=== PATIENT | female | born 1980 | race Caucasian/White ===

== ENCOUNTER → 2016-09-27 | Outpatient (CLI) | payer MEDICARE, OTHER ==
[~2016-09-27] MED LIST: LEUPROLIDE ACET 11.25MG SYRGKIT IM ONE
[2016-09-27 08:45] VITALS: BP 131/87; PULSE 99; RESP 16; TEMP 97.7
== END | disposition home or self-care (01) ==
LOC: PROCWHC3 08:30
PROVIDERS: ATTEND Internal Medicine Hematology & Oncology
DX: C50.412 Malignant neoplasm of upper-outer quadrant of left female breast (principal)
CPT/HCPCS: 96372; J1950

== ENCOUNTER → 2016-12-26 | Outpatient (CLI) | payer MEDICARE, OTHER ==
[~2016-12-26] MED LIST changes: +LEUPROLIDE ACET 11.25MG SYRGKIT IM NR; -LEUPROLIDE ACET 11.25MG SYRGKIT IM ONE
[2016-12-26 09:17] VITALS: BP 147/84; PULSE 95; RESP 16; TEMP 97.7
== END ==
LOC: PROCWHC3 08:40
PROVIDERS: ATTEND Internal Medicine Hematology & Oncology
DX: Z51.11 Encounter for antineoplastic chemotherapy (principal); C50.412 Malignant neoplasm of upper-outer quadrant of left female breast
CPT/HCPCS: 96402; J1950

== ENCOUNTER → 2017-03-28 | Outpatient (CLI) | payer MEDICARE, OTHER ==
[~2017-03-28] MED LIST changes: -LEUPROLIDE ACET 11.25MG SYRGKIT IM NR; +LEUPROLIDE ACET 11.25MG SYRGKIT IM ONE
[2017-03-28 08:53] VITALS: BP 135/87; PULSE 95; RESP 18; TEMP 97.6
== END | disposition home or self-care (01) ==
LOC: PROCWHC3 08:27
PROVIDERS: ATTEND Internal Medicine Hematology & Oncology
DX: C50.412 Malignant neoplasm of upper-outer quadrant of left female breast (principal)
CPT/HCPCS: 96402; J1950

== ENCOUNTER 2017-05-26 08:43 | Emergency (ER) | payer MEDICARE, OTHER ==
[2017-05-26 08:51] VITALS: BP 133/84; PULSE 104; RESP 18; TEMP 97.2
--- NOTE | 2017-05-26 09:07 | ED ---
General Adult HPI - General Chief complaint: Extremity Problem,Nontraumatic Stated complaint: L leg swelling Time Seen by Provider: 05/26/17 08:52 Source: patient, RN notes reviewed Mode of arrival: ambulatory Limitations: no limitations - History of Present Illness Initial comments: patient is a 37-year-old female who presents emergency room today with chief complaint of redness and some swelling to the left lower ankle. Patient does not that it started a few days ago. Does not that she's had cellulitis in the past and thislook similar. Patient denies any other complaints or symptoms. Patient denies any recent fever, chills, shortness of breath, chest pain, back pain, abdominal pain, nausea or vomiting, numbness or tingling, dysuria or hematuria, constipation or diarrhea, headaches or visual changes, or any other complaints. - Related Data Home Medications Medication Instructions Recorded Confirmed Leuprolide Acetate [Lupron Depot] 3.75 mg IM DIRECTED 04/20/15 03/28/17 carBAMazepine [TEGretol XR] 400 mg PO TID 04/27/15 03/28/17 Calcium Carbonate/Vitamin D3 1 each PO DAILY 03/21/16 03/28/17 [Calcium 600-Vit D3 800 Tab] Multivitamins, Thera [Multivitamin] 1 tab PO DAILY 03/21/16 03/28/17 Previous Rx's Medication Instructions Recorded Cephalexin [Keflex] 500 mg PO Q12HR 10 Days 05/26/17 Sulfamethox-Tmp 800-160Mg [Bactrim 1 tab PO Q12HR #20 tab 05/26/17 DS 800-160 mg] Allergies Allergy/AdvReac Type Severity Reaction Status Date / Time No Known Allergies Allergy Verified 05/26/17 08:51 Review of Systems ROS Statement: Those systems with pertinent positive or pertinent negative responses have been documented in the HPI. ROS Other: All systems not noted in ROS Statement are negative. Past Medical History Past Medical History: Cancer, CVA/TIA, Pneumonia, Seizure Disorder Additional Past Medical History / Comment(s): bilateral mastectomies 11/2014, abdominal wall cellulitis with sepsis-candidiasis beneath breasts, L breast cancer 05/25/14 and underwent several chemo tx with last one being 10/08/14. 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 History of Any Multi-Drug Resistant Organisms: None Reported Past Surgical History: Breast Surgery, Tonsillectomy Additional Past Surgical History / Comment(s): biopsy lt breast positive for CA - Apr 2014. MOther states plan of care is post insertion, chemo, surgery then radiation. Starting once all test results are back. Lt axillary biopsy scheduledfor05/09/14 - bilat mastectomy, last chemo oct 08, 2014 Past Anesthesia/Blood Transfusion Reactions: No Reported Reaction Past Psychological History: No Psychological Hx Reported Smoking Status: Never smoker Past Alcohol Use History: None Reported Past Drug Use History: None Reported - Past Family History Brother(s) Additional Family Medical History / Comment(s): testicular cancer Father Family Medical History: Hypertension mother Additional Family Medical History / Comment(s): melanoma in arm, arthiritis in bilateral knees- has had one knee replacement and needs the other one done. General Exam - General Exam Comments Initial Comments: General: The patient is awake and alert, in no distress, and does not appear acutely ill. Neck: The neck is supple, there is no tenderness or JVD. Cardiovascular: There is a regular rate and rhythm. No murmur, rub or gallop is appreciated. Respiratory: Lungs are clear to auscultation, respirations are non-labored, breath sounds are equal. No wheezes, stridor, rales, or rhonchi. Musculoskeletal:Full range motion. Sensation intact. Pulses equal bilateral 2 + per strength 5/5. Neurological: A&O x 3. CN II-XII intact, There are no obvious motor or sensory deficits. Coordination appears grossly intact. Speech is normal. Skin: area of redness and swelling locally or to the medial aspect of the left upper ankle. Measures approximately 6-7 cm across. No locally firm on palpation no sign of abscess at this time. Finds are consistent with a sialitis. Skin is warm to touch. Psychiatric: Normal mood and affect. Limitations: no limitations Course Vital Signs 05/26/17 08:47 Temperature 97.2 F L Pulse Rate 104 H Respiratory 18 Rate Blood Pressure 133/84 Medical Decision Making - Medical Decision Making Case discussed in detail with attending physician Dr. Quintero. patient will be covered with both Bactrim and Keflex for sinus infection. Close follow-up return here to the emergency room symptoms increase or worsen. Disposition Clinical Impression: Cellulitis Disposition: HOME SELF-CARE Condition: Good Instructions: Cellulitis (ED) Additional Instructions: Please use medication as discussed. Please follow-up with family doctor in the next 2 days of symptoms have not improved. Please return to emergency room if the symptoms increase or worsen or for any other concerns. Prescriptions: Cephalexin [Keflex] 500 mg PO Q12HR 10 Days Sulfamethox-Tmp 800-160Mg [Bactrim DS 800-160 mg] 1 tab PO Q12HR #20 tab Referrals: Joan Reyes MD [Primary Care Provider] - 1-2 days Time of Disposition: 09:06
== END 2017-05-26 09:11 | disposition home or self-care (01) ==
LOC: EC 08:43
DX: L03.116 Cellulitis of left lower limb (principal); G40.909 Epilepsy, unspecified, not intractable, without status epilepticus; Z86.73 Personal history of transient ischemic attack (TIA), and cerebral infarction without residual deficits; Z79.899 Other long term (current) drug therapy
CPT/HCPCS: 99283

== ENCOUNTER → 2017-06-02 | Outpatient (CLI) | payer MEDICARE, OTHER ==
[2017-06-02 10:13] LABS: ALT 31 U/L (9-52); AST 17 U/L (14-36); Alkaline Phosphatase 166 U/L (38-126); Anion Gap 12 mmol/L; Blood Urea Nitrogen 14 mg/dL (7-17); Calcium 10.1 mg/dL (8.4-10.2); Carbon Dioxide 26 mmol/L (22-30); Chloride 105 mmol/L (98-107); Cholesterol 194 mg/dL (<200); Glucose 91 mg/dL (74-99); HDL Cholesterol 60 mg/dL (40-60); Magnesium 1.9 mg/dL (1.6-2.3); Non-African American GFR(MDRD) >60 (>60 ml/min/1.73 sqM); Potassium 4.1 mmol/L (3.5-5.1); Sodium 143 mmol/L (137-145); Total Bilirubin 0.2 mg/dL (0.2-1.3); Total Protein 8.3 g/dL (6.3-8.2)
[2017-06-02 10:15] LABS: Basophils % (A) 1 %; CH 27.6; CHCM 31.1; Eosinophils # (A) 0.3 k/uL (0-0.7); Eosinophils % (A) 5 %; HCT 43.7 % (34.0-46.0); HDW 2.46; HGB 13.5 gm/dL (11.4-16.0); Hypochromasia Slight; Luc # (Auto) 0.13; Luc % (Auto) 2; Lymphocytes # (A) 1.4 k/uL (1.0-4.8); Lymphocytes % (A) 25 %; MCH 27.5 pg (25.0-35.0); MCHC 30.9 g/dL (31.0-37.0); MCV 88.9 fL (80.0-100.0); Mean Platelet Volume 6.1; Monocytes # (A) 0.3 k/uL (0-1.0); Monocytes % (A) 6 %; Neutrophils # (A) 3.3 k/uL (1.3-7.7); Neutrophils % (A) 61 %; RBC 4.91 m/uL (3.80-5.40); RDW 12.5 % (11.5-15.5); WBC 5.4 k/uL (3.8-10.6); WBC (Perox) 5.13
[2017-06-02 15:00] LABS: Hemoglobin A1C 5.4 % (4.2-6.1)
== END | disposition home or self-care (01) ==
LOC: LABWHC1 09:14
PROVIDERS: ATTEND Family Medicine
DX: L03.116 Cellulitis of left lower limb (principal); E66.01 Morbid (severe) obesity due to excess calories; G40.909 Epilepsy, unspecified, not intractable, without status epilepticus
CPT/HCPCS: 36415; 80053; 80061; 83036; 83735; 84443; 85025; 90471; 90715; 99204

== ENCOUNTER → 2017-06-03 | Outpatient (CLI) | payer MEDICARE, OTHER ==
--- NOTE | 2017-06-03 16:18 | US ---
EXAMINATION TYPE: US venous doppler duplex LE LT DATE OF EXAM: 06/03/2017 3:58 PM COMPARISON: US CLINICAL HISTORY: M79.662 Pain in left leg,R22.42 Swelling left leg Hx of breast CA 2 years ago, prio r left arm and left leg DVT. SIDE PERFORMED: Left TECHNIQUE: The lower extremity deep venous system is examined utilizing real time linear array sonog geoffrey with graded compression, doppler sonography and color-flow sonography. VESSELS IMAGED: Common Femoral Vein Deep Femoral Vein Greater Saphenous Vein * Femoral Vein Popliteal Vein Small Saphenous Vein * Proximal Calf Veins (* superficial vessels) Left Leg: Is positive for non occluding DVT left Popliteal Vein and one of 2 calf Veins.Tech finding s were called to answering machine of medical liaisonMelissa, at Dr Casey's Office, at exam's end . IMPRESSION: Nonoccluding DVT as noted.
== END | disposition home or self-care (01) ==
LOC: RADUSWWP 15:12
PROVIDERS: ATTEND Internal Medicine Hematology & Oncology
DX: R22.42 Localized swelling, mass and lump, left lower limb (principal)

== ENCOUNTER → 2017-07-01 | Outpatient (CLI) | payer MEDICARE, OTHER ==
[2017-07-01 08:58] VITALS: BP 161/96; PULSE 108; RESP 16; TEMP 98.3
== END | disposition home or self-care (01) ==
LOC: PROCWHC3 08:30
PROVIDERS: ATTEND Internal Medicine Hematology & Oncology
DX: C50.412 Malignant neoplasm of upper-outer quadrant of left female breast (principal)
CPT/HCPCS: 96402; J1950

== ENCOUNTER → 2017-10-02 | Outpatient (CLI) | payer MEDICARE, OTHER ==
[~2017-10-02] MED LIST changes: +LEUPROLIDE ACET 11.25MG SYRGKIT IM NR; -LEUPROLIDE ACET 11.25MG SYRGKIT IM ONE
[2017-10-02 08:45] VITALS: BP 146/97; PULSE 100; RESP 16; TEMP 97.5
== END | disposition home or self-care (01) ==
LOC: PROCWHC3 08:27
PROVIDERS: ATTEND Internal Medicine Hematology & Oncology
DX: C50.412 Malignant neoplasm of upper-outer quadrant of left female breast (principal)
CPT/HCPCS: 96402; J1950

== ENCOUNTER → 2018-04-06 | Outpatient (CLI) | payer MEDICARE, OTHER ==
[~2018-04-06] MED LIST changes: -LEUPROLIDE ACET 11.25MG SYRGKIT IM NR; +LEUPROLIDE ACET 11.25MG SYRGKIT IM ONE
[2018-04-06 08:53] VITALS: BP 137/80; RESP 18; TEMP 97.8
== END | disposition home or self-care (01) ==
LOC: PROCWHC3 08:34
PROVIDERS: ATTEND Internal Medicine Hematology & Oncology
DX: C50.412 Malignant neoplasm of upper-outer quadrant of left female breast (principal)
CPT/HCPCS: 96402; J1950

== ENCOUNTER → 2018-07-07 | Outpatient (CLI) | payer MEDICARE, OTHER ==
[~2018-07-07] MED LIST changes: +LEUPROLIDE ACETATE 22.5 MG SYRG KIT IM ONE
[2018-07-07 08:50] VITALS: BP 148/95; PULSE 98; RESP 16; TEMP 97.6
== END | disposition home or self-care (01) ==
LOC: PROCWHC3 08:28
PROVIDERS: ATTEND Internal Medicine Hematology & Oncology
DX: C50.412 Malignant neoplasm of upper-outer quadrant of left female breast (principal)
CPT/HCPCS: 96372; J1950

== ENCOUNTER → 2018-10-23 | Outpatient (CLI) | payer MEDICARE, OTHER ==
[~2018-10-23] MED LIST changes: +LEUPROLIDE ACET 11.25MG SYRGKIT IM NR; -LEUPROLIDE ACET 11.25MG SYRGKIT IM ONE; -LEUPROLIDE ACETATE 22.5 MG SYRG KIT IM ONE
[2018-10-23 08:43] VITALS: BP 144/96; PULSE 91; RESP 16; TEMP 97.1
== END ==
LOC: PROCWHC3 08:30
PROVIDERS: ATTEND Internal Medicine Hematology & Oncology
DX: C50.412 Malignant neoplasm of upper-outer quadrant of left female breast (principal)
CPT/HCPCS: 96402

== ENCOUNTER → 2018-11-24 | Outpatient (CLI) | payer MEDICARE, OTHER ==
--- NOTE | 2018-11-25 22:35 | BD ---
EXAMINATION TYPE: Axial Bone Density DATE OF EXAM: 11/24/2018 COMPARISON: 2016 CLINICAL HISTORY: [facility] use of bisphosphonates Height: 5'4 /2 Weight: 276 FRAX RISK QUESTIONS: Secondary Osteoporosis: 3. Menopause before 45: y RISK FACTORS HISTORY OF: Active: y Postmenopausal woman: y medically induced MEDICATIONS: Additional Medications: seizure, calcium, shots for medically induced menopause Additional History: breast cancer, 2015, radiation and chemo yamini mastectomy EXAM MEASUREMENTS: Bone mineral densitometry was performed using the [employer] System. Bone mineral density as measured about the Lumbar spine is: ----- L1-L4(G/cm2): 1.278 T Score Values are as follows: ----- L2: 1.2 ----- L3: 1.3 ----- L4: 0.6 ----- L1-L4: 0.8 Bone mineral density has: Decreased -8.1% since study of: 11/24/2015 Bone mineral density about the R hip (g/cm2): 1.233 Bone mineral density about the L hip (g/cm2): 1.198 T Score values are as follows: -----R Neck: 1.1 -----L Neck: 0.8 -----R Total: 1.7 -----L Total: 1.6 Bone mineral density has: Decreased -0.9% since study of: 11/24/2015 IMPRESSION: Normal (Values between +1 and -1 indicate normal bone mass). Consider repeating this study in 5 year s or sooner if there is some new clinical indication. NOTE: T-SCORE=SD OF THE YOUNG ADULT MEAN.
== END | disposition home or self-care (01) ==
LOC: RADBDWWP 08:38
PROVIDERS: ATTEND Internal Medicine Hematology & Oncology
DX: C50.412 Malignant neoplasm of upper-outer quadrant of left female breast (principal); N95.1 Menopausal and female climacteric states; Z79.890 Hormone replacement therapy
CPT/HCPCS: 77080

== ENCOUNTER → 2019-01-29 | Outpatient (CLI) | payer MEDICARE, OTHER ==
[2019-01-29 08:58] LABS: Basophils % (A) 1 %; Eosinophils # (A) 0.4 k/uL (0-0.7); Eosinophils % (A) 9 %; HCT 42.5 % (34.0-46.0); Lymphocytes # (A) 1.4 k/uL (1.0-4.8); Lymphocytes % (A) 29 %; MCH 27.5 pg (25.0-35.0); MCV 83.2 fL (80.0-100.0); Mean Platelet Volume 6.3; Monocytes # (A) 0.2 k/uL (0-1.0); Monocytes % (A) 5 %; Neutrophils # (A) 2.5 k/uL (1.3-7.7); Neutrophils % (A) 53 %; Platelet Count 286 k/uL (150-450); RDW 13.1 % (11.5-15.5); WBC 4.7 k/uL (3.8-10.6)
[2019-01-29 16:46] LABS: African American GFR (CKD) 126.5 (60.0-200.0); Albumin 4.6 g/dL (3.80-4.90); Albumin/Globulin Ratio 1.7 (1.60-3.17); Anion Gap 12.2 mmol/L (4.00-12.00); BUN/Creat Ratio 18.57 Ratio (12.00-20.00); Calcium 9.9 mg/dL (8.7-10.3); Carbon Dioxide 25.8 mmol/L (21.6-31.8); Globulin 2.7 g/dL (1.6-3.3); Potassium 4.6 mmol/L (3.5-5.5); Total Bilirubin 0.4 mg/dL (0.2-1.2); Total Protein 7.3 g/dL (6.2-8.2)
[2019-01-29 18:14] LABS: Carbamazepine (Tegretol) 8.8 ug/mL (4.0-12.0)
== END | disposition home or self-care (01) ==
LOC: LABWHC1 08:03
PROVIDERS: ATTEND Family Medicine
DX: Z00.00 Encounter for general adult medical examination without abnormal findings (principal); G40.909 Epilepsy, unspecified, not intractable, without status epilepticus; E66.01 Morbid (severe) obesity due to excess calories; Z68.42 Body mass index [BMI] 45.0-49.9, adult; R03.0 Elevated blood-pressure reading, without diagnosis of hypertension
CPT/HCPCS: 36415; 80053; 80061; 80156; 84443; 85025

== ENCOUNTER → 2019-01-29 | Outpatient (CLI) | payer MEDICARE, OTHER ==
[2019-01-29 08:38] VITALS: RESP 16; TEMP 98.4
[2019-01-29 09:13] VITALS: BP 137/95; PULSE 90
== END | disposition home or self-care (01) ==
LOC: PROCWHC3 08:28
PROVIDERS: ATTEND Internal Medicine Hematology & Oncology
DX: C50.412 Malignant neoplasm of upper-outer quadrant of left female breast (principal)
CPT/HCPCS: 96402; J1950

== ENCOUNTER → 2019-05-04 | Outpatient (CLI) | payer MEDICARE, OTHER ==
[2019-05-04 08:54] VITALS: BP 132/88; PULSE 90; RESP 16; TEMP 97.9
== END | disposition home or self-care (01) ==
LOC: PROCWHC3 08:28
PROVIDERS: ATTEND Internal Medicine Hematology & Oncology
DX: Z51.11 Encounter for antineoplastic chemotherapy (principal); C50.412 Malignant neoplasm of upper-outer quadrant of left female breast
CPT/HCPCS: 96402; J1950

== ENCOUNTER → 2019-08-18 | Outpatient (CLI) | payer MEDICARE, OTHER ==
[2019-08-18 08:46] VITALS: BP 144/89; PULSE 96; RESP 16; TEMP 97.7
== END | disposition home or self-care (01) ==
LOC: PROCWHC3 08:27
PROVIDERS: ATTEND Internal Medicine Hematology & Oncology
DX: Z51.11 Encounter for antineoplastic chemotherapy (principal); C50.412 Malignant neoplasm of upper-outer quadrant of left female breast
CPT/HCPCS: 96402; J1950

== ENCOUNTER → 2019-09-01 | Outpatient (CLI) | payer MEDICARE, OTHER ==
--- NOTE | 2019-09-01 10:43 | US ---
EXAMINATION TYPE: US venous doppler duplex LE RT DATE OF EXAM: 09/01/2019 10:32 AM COMPARISON: 06/03/2017 CLINICAL HISTORY: R LEG, M79.89 R leg swelling. Hx DVT in left leg. On blood thinners. Swelling and redness. SIDE PERFORMED: Right TECHNIQUE: The lower extremity deep venous system is examined utilizing real time linear array sonog geoffrey with graded compression, doppler sonography and color-flow sonography. VESSELS IMAGED: External Iliac Vein (EIV) Common Femoral Vein Deep Femoral Vein Greater Saphenous Vein * Femoral Vein Popliteal Vein Small Saphenous Vein * Proximal Calf Veins (* superficial vessels) Right Leg: Negative for DVT IMPRESSION: 1. No diagnostic evidence of DVT.
== END | disposition home or self-care (01) ==
LOC: RADUSWWP 10:16
PROVIDERS: ATTEND Family Medicine
DX: M79.89 Other specified soft tissue disorders (principal)

== ENCOUNTER → 2019-09-30 | Outpatient (CLI) | payer MEDICARE, OTHER ==
[2019-09-30 10:01] LABS: Basophils % (A) 1 %; Eosinophils # (A) 0.3 k/uL (0-0.7); Eosinophils % (A) 4 %; HCT 42.3 % (34.0-46.0); HGB 13.7 gm/dL (11.4-16.0); Lymphocytes # (A) 1.6 k/uL (1.0-4.8); Lymphocytes % (A) 24 %; MCHC 32.4 g/dL (31.0-37.0); MCV 83.4 fL (80.0-100.0); Mean Platelet Volume 6.4; Monocytes # (A) 0.3 k/uL (0-1.0); Monocytes % (A) 5 %; Neutrophils # (A) 4.1 k/uL (1.3-7.7); Neutrophils % (A) 64 %; Platelet Count 297 k/uL (150-450); RBC 5.07 m/uL (3.80-5.40); RDW 12.8 % (11.5-15.5); WBC 6.4 k/uL (3.8-10.6)
[2019-09-30 16:16] LABS: African American GFR (CKD) 106.9 (60.0-200.0); Albumin 4.8 g/dL (3.80-4.90); Albumin/Globulin Ratio 1.71 (1.60-3.17); Anion Gap 8.7 mmol/L (4.00-12.00); BUN/Creat Ratio 17.5 Ratio (12.00-20.00); Calcium 10.2 mg/dL (8.7-10.3); Carbon Dioxide 26.3 mmol/L (21.6-31.8); Globulin 2.8 g/dL (1.6-3.3); Non-African American GFR(CKD) 92.2 (60.0-200.0); Potassium 4.6 mmol/L (3.5-5.5); Total Bilirubin 0.3 mg/dL (0.2-1.2); Total Protein 7.6 g/dL (6.2-8.2)
[2019-09-30 17:33] LABS: Hemoglobin A1C 4.4 % (4.0-6.0)
== END | disposition home or self-care (01) ==
LOC: LABWHC1 09:21
PROVIDERS: ATTEND Psychiatry & Neurology Neurology
DX: G40.009 Localization-related (focal) (partial) idiopathic epilepsy and epileptic syndromes with seizures of localized onset, not intractable, without status epilepticus (principal); R60.0 Localized edema; L03.115 Cellulitis of right lower limb; I10 Essential (primary) hypertension; Z83.3 Family history of diabetes mellitus
CPT/HCPCS: 36415; 80053; 80156; 83036; 83880; 84443; 85025

== ENCOUNTER → 2019-10-26 | Outpatient (CLI) | payer MEDICARE, OTHER ==
--- NOTE | 2019-10-26 09:11 | ECHOF ---
Referral Reason:R60.0 bilateral leg edema MEASUREMENTS -------- HEIGHT: 165.1 cm WEIGHT: 127.0 kg BP: RVIDd: 2.1 cm (< 3.3) IVSd: 1.3 cm (0.6 - 1.1) LVIDd: 3.3 cm (3.9 - 5.3) LVPWd: 1.3 cm (0.6 - 1.1) IVSs: 1.7 cm LVIDs: 1.9 cm LVPWs: 1.4 cm Ao Diam: 2.7 cm (2.0 - 3.7) AV Cusp: 2.4 cm (1.5 - 2.6) LA Diam: 3.2 cm (2.7 - 3.8) MV EXCURSION: 18.742 mm (> 18.000) MV EF SLOPE: 97 mm/s (70 - 150) EPSS: 0.4 cm MV E Hesham: 0.64 m/s MV DecT: 150 ms MV A Hesham: 0.71 m/s MV E/A Ratio: 0.89 RAP: 5.00 mmHg RVSP: 26.47 mmHg FINDINGS -------- Resting tachycardia (HR>100bpm). This was a technically good study. Pt had double mastectomy The left ventricular size is normal. There is mild concentric left ventricular hypertrophy. Overa ll left ventricular systolic function is normal with, an EF between 55 - 60 %. The right ventricle is normal in size. The left atrial size is normal. The right atrial size is normal. The aortic valve is trileaflet and appears structurally normal. The mitral valve is normal. The mitral valve leaflets are mildly thickened. There is trace mitral regurgitation. The tricuspid valve appears structurally normal. Trace tricuspid regurgitation present. Right savanah tricular systolic pressure is normal at < 35 mmHg. The right ventricular systolic pressure, as jere ured by Doppler, is 26.47mmHg. There is no pulmonic regurgitation present. The aortic root size is normal. IVC Not well visulized. There is a small pericardial effusion located near the left ventricle. CONCLUSIONS -------- 1. Resting tachycardia (HR>100bpm). 2. This was a technically good study. 3. Pt had double mastectomy 4. The left ventricular size is normal. 5. There is mild concentric left ventricular hypertrophy. 6. Overall left ventricular systolic function is normal with, an EF between 55 - 60 %. 7. The right ventricle is normal in size. 8. The left atrial size is normal. 9. The right atrial size is normal. 10. The aortic valve is trileaflet and appears structurally normal. 11. The mitral valve is normal. 12. The mitral valve leaflets are mildly thickened. 13. There is trace mitral regurgitation. 14. The tricuspid valve appears structurally normal. 15. Trace tricuspid regurgitation present. 16. Right ventricular systolic pressure is normal at < 35 mmHg. 17. There is no pulmonic regurgitation present. 18. The aortic root size is normal. 19. IVC Not well visulized. 20. There is a small pericardial effusion located near the left ventricle. CHARGE OPERATOR: Asmita Larry RDCS
== END | disposition home or self-care (01) ==
LOC: RADECHMAIN 08:24
PROVIDERS: ATTEND Family Medicine
DX: I51.7 Cardiomegaly (principal); I31.3 Pericardial effusion (noninflammatory)
CPT/HCPCS: 93306

== ENCOUNTER → 2019-11-17 | Outpatient (CLI) | payer MEDICARE, OTHER ==
[2019-11-17 08:35] VITALS: BP 124/62; PULSE 100; RESP 16; TEMP 97.9
== END | disposition home or self-care (01) ==
LOC: PROCWHC3 08:14
PROVIDERS: ATTEND Internal Medicine Hematology & Oncology
DX: Z51.11 Encounter for antineoplastic chemotherapy (principal); C50.412 Malignant neoplasm of upper-outer quadrant of left female breast
CPT/HCPCS: 96402; J1950

== ENCOUNTER 2019-12-03 08:27 | Emergency (ER) | payer MEDICARE, OTHER ==
[2019-12-03 08:34] VITALS: RESP 18; TEMP 99
[2019-12-03] MEDS ORDERED: LIDOCAINE 1% INJ 10MG/ML (20 ML MDV) SQ ONE (08:40)
--- NOTE | 2019-12-03 08:53 | ED ---
General Adult HPI - General Chief complaint: Dental/Oral Stated complaint: facial swelling Time Seen by Provider: 12/03/19 08:36 Source: patient, family, RN notes reviewed Mode of arrival: ambulatory Limitations: no limitations - History of Present Illness Initial comments: Patient is a pleasant 39-year-old female presenting to the emergency Department with concerns for dental pain and swelling. Patient did have some symptoms yesterday, worse today. No dyspnea or difficulty swallowing. Patient is not currently on chemotherapy however is on hormonal therapy. Patient does have history of known dental problem however dentist would not perform procedure on her and seen in August secondary to high blood pressure. They have been unable to get in to see the dentist since that time - Related Data Home Medications Medication Instructions Recorded Confirmed carBAMazepine [TEGretol XR] 400 mg PO TID 04/27/15 11/17/19 Calcium Carbonate/Vitamin D3 1 tab PO DAILY 03/21/16 11/17/19 [Calcium 600-Vit D3 800 Tab] Multivitamins, Thera [Multivitamin] 1 tab PO DAILY 03/21/16 11/17/19 Rivaroxaban [Xarelto] 20 mg PO DAILY 07/01/17 11/17/19 Previous Rx's Medication Instructions Recorded Penicillin V Potassium [Pen Vee K] 500 mg PO QID #40 tablet 12/03/19 Allergies Allergy/AdvReac Type Severity Reaction Status Date / Time No Known Allergies Allergy Verified 12/03/19 08:34 Review of Systems ROS Statement: Those systems with pertinent positive or pertinent negative responses have been documented in the HPI. ROS Other: All systems not noted in ROS Statement are negative. Constitutional: Denies: fever Eyes: Denies: eye pain ENT: Reports: dental pain Respiratory: Denies: dyspnea Cardiovascular: Denies: chest pain Endocrine: Denies: fatigue Gastrointestinal: Denies: abdominal pain Genitourinary: Denies: dysuria Musculoskeletal: Denies: back pain Skin: Denies: rash Neurological: Denies: weakness Past Medical History Past Medical History: Cancer, CVA/TIA, Hypertension, Seizure Disorder Additional Past Medical History / Comment(s): bilateral mastectomies 11/2014, abdominal wall cellulitis with sepsis-candidiasis beneath breasts, L breast cancer 05/25/14 and underwent several chemo tx with last one being 10/08/14. 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 records indicate 09/2013, strabismus- V vision so no L peripheral vision, high arch palate. Blood clot left leg - 2016 (started on xarelto) History of Any Multi-Drug Resistant Organisms: None Reported Past Surgical History: Breast Surgery, Tonsillectomy Additional Past Surgical History / Comment(s): biopsy lt breast positive for CA- Apr 2014. MOther states plan of care is post insertion, chemo, surgery then radiation. Starting once all test results are back. Lt axillary biopsy scheduledfor05/09/14 - bilat mastectomy, last chemo oct 08, 2014 Past Anesthesia/Blood Transfusion Reactions: No Reported Reaction Past Psychological History: No Psychological Hx Reported Smoking Status: Never smoker Past Alcohol Use History: None Reported Past Drug Use History: None Reported - Past Family History Brother(s) Additional Family Medical History / Comment(s): testicular cancer Father Family Medical History: Hypertension mother Additional Family Medical History / Comment(s): melanoma in arm, arthiritis in bilateral knees- has had one knee replacement and needs the other one done. General Exam Limitations: no limitations General appearance: alert, in no apparent distress Head exam: Present: normocephalic Eye exam: Present: normal appearance ENT exam: Present: other (Right upper premolar with swelling consistent with dental abscess. Poor dentition. Mild to moderate right maxillary swelling externally.) Neck exam: Present: normal inspection Respiratory exam: Present: normal lung sounds bilaterally Cardiovascular Exam: Present: regular rate, normal rhythm GI/Abdominal exam: Present: soft. Absent: tenderness Neurological exam: Present: alert Psychiatric exam: Present: normal affect, normal mood Skin exam: Present: normal color Course Vital Signs 12/03/19 08:28 Temperature 99 F Pulse Rate 141 H Respiratory 18 Rate Blood Pressure 125/86 O2 Sat by Pulse 94 L Oximetry Procedures - Procedures Initial comment: Right upper premolar abscess incised with 11 blade. There was bloody discharge with only trace amount of purulent. No complication. - Nerve Block Consent Obtained: verbal consent Local Anesthetic Used: Lidocaine 1% Side: right Intraoral Nerve Block: supraperiosteal Procedure Successful: Yes Complications: none Patient Tolerated Procedure: well, no complications Medical Decision Making - Medical Decision Making Patient and family updated on need for follow-up and need to return if symptoms worsen. Disposition Clinical Impression: Dental abscess Disposition: HOME SELF-CARE Condition: Stable Instructions (If sedation given, give patient instructions): Dental Abscess (ED) Additional Instructions: Please follow-up with dentist as soon as possible, call today. Please follow-up with primary care physician in the next couple days for recheck. Return for fevers, increased pain, increased swelling, worsening symptoms or other concerns. Restriction sent to [facility] Prescriptions: Penicillin V Potassium [Pen Vee K] 500 mg PO QID #40 tablet Is patient prescribed a controlled substance at d/c from ED?: No Referrals: Pramod Bernal [Primary Care Provider] - 1-2 days Time of Disposition: 09:04
[2019-12-03] MEDS ORDERED: traMADol 50 MG STARTER PACK 3 TAB BTL PO STA (09:04)
[2019-12-03] MEDS ORDERED: PENICILLIN VK 500MG STARTER 4 TAB BTL PO STA (09:04)
[2019-12-03 09:54] VITALS: BP 133/97; PULSE 112
== END 2019-12-03 09:54 | disposition home or self-care (01) ==
LOC: EC 08:27
DX: K04.7 Periapical abscess without sinus (principal); G40.909 Epilepsy, unspecified, not intractable, without status epilepticus; Z85.3 Personal history of malignant neoplasm of breast; Z92.21 Personal history of antineoplastic chemotherapy; Z86.73 Personal history of transient ischemic attack (TIA), and cerebral infarction without residual deficits; Z79.01 Long term (current) use of anticoagulants; Z79.899 Other long term (current) drug therapy
CPT/HCPCS: 99283; 41800; J2001

== ENCOUNTER → 2020-02-16 | Outpatient (CLI) | payer MEDICARE, OTHER ==
[2020-02-18 09:34] VITALS: BP 125/86; PULSE 90; RESP 16; TEMP 98.8
== END | disposition home or self-care (01) ==
LOC: PROCWHC3 12:38
PROVIDERS: ATTEND Internal Medicine Hematology & Oncology
DX: Z51.11 Encounter for antineoplastic chemotherapy (principal); C50.412 Malignant neoplasm of upper-outer quadrant of left female breast
CPT/HCPCS: 96402; J1950

== ENCOUNTER → 2020-05-19 | Outpatient (CLI) | payer MEDICARE, OTHER ==
[~2020-05-19] MED LIST changes: +GOSERELIN ACETATE 10.8 MG IMPLANT SQ NR; -LEUPROLIDE ACET 11.25MG SYRGKIT IM NR
[2020-05-19 08:50] VITALS: BP 133/88; PULSE 95; RESP 16; TEMP 98.5
== END | disposition home or self-care (01) ==
LOC: PROCWHC3 08:34
PROVIDERS: ATTEND Internal Medicine Hematology & Oncology
DX: Z51.11 Encounter for antineoplastic chemotherapy (principal); C50.412 Malignant neoplasm of upper-outer quadrant of left female breast
CPT/HCPCS: 96402; J9202

== ENCOUNTER → 2020-08-22 | Outpatient (CLI) | payer MEDICARE, OTHER ==
[~2020-08-22] MED LIST changes: -GOSERELIN ACETATE 10.8 MG IMPLANT SQ NR; +LEUPROLIDE ACET 11.25MG SYRGKIT IM NR
== END | disposition home or self-care (01) ==
LOC: PROCWHC3 08:29
PROVIDERS: ATTEND Internal Medicine Hematology & Oncology
DX: C50.412 Malignant neoplasm of upper-outer quadrant of left female breast (principal)
CPT/HCPCS: 96402; J1950

== ENCOUNTER → 2020-11-10 | Outpatient (CLI) | payer MEDICARE, OTHER ==
[2020-11-10 14:35] LABS: Basophils # (A) 0.02 X 10*3/uL (0.00-0.10); Basophils % (A) 0.4 %; Eosinophils # (A) 0.16 X 10*3/uL (0.04-0.35); HCT 48.3 % (37.2-46.3); Lymphocytes # (A) 1.58 X 10*3/uL (0.90-5.00); Lymphocytes % (A) 29.3 %; MCH 27.5 pg (27.0-32.0); MCHC 31.1 g/dL (32.0-37.0); MCV 88.6 fL (80.0-97.0); Mean Platelet Volume 9.2 fL (9.5-12.2); Monocytes # (A) 0.35 X 10*3/uL (0.20-1.00); Monocytes % (A) 6.5 %; Neutrophils # (A) 3.26 X 10*3/uL (1.80-7.70); Neutrophils % (A) 60.4 %; Platelet Count 273 X 10*3/uL (140-440); RBC 5.45 X 10*6/uL (4.10-5.20); RDW 12.9 % (11.5-14.5); WBC 5.39 X 10*3/uL (4.50-10.00)
[2020-11-10 17:57] LABS: Albumin 5.2 g/dL (3.80-4.90); Albumin/Globulin Ratio 1.68 (1.60-3.17); Anion Gap 11.3 mmol/L (4.00-12.00); BUN/Creat Ratio 16.67 Ratio (12.00-20.00); Calcium 10.4 mg/dL (8.7-10.3); Carbon Dioxide 25.7 mmol/L (21.6-31.8); Chol/HDL Ratio 4.4; Globulin 3.1 g/dL (1.6-3.3); LDL Cholesterol,Calculated 141.2 mg/dL (0.0-131.0); Non-African American GFR(CKD) 79.4 (60.0-200.0); Potassium 4.4 mmol/L (3.5-5.5); Total Bilirubin 0.4 mg/dL (0.3-1.2); Total Protein 8.3 g/dL (6.2-8.2); VLDL Calculation 35.8 mg/dL (5.00-40.00)
[2020-11-10 20:38] LABS: Carbamazepine (Tegretol) 12.6 ug/mL (4.0-12.0)
== END | disposition home or self-care (01) ==
LOC: LABWHC1 08:00
PROVIDERS: ATTEND Family Medicine
DX: Z00.00 Encounter for general adult medical examination without abnormal findings (principal); Z12.4 Encounter for screening for malignant neoplasm of cervix; G40.909 Epilepsy, unspecified, not intractable, without status epilepticus; I10 Essential (primary) hypertension
CPT/HCPCS: 36415; 80053; 80061; 80156; 84443; 85025

== ENCOUNTER → 2020-11-28 | Outpatient (CLI) | payer MEDICARE, OTHER ==
[2020-11-28 08:00] VITALS: BP 138/91; PULSE 89; RESP 16; TEMP 98
== END | disposition home or self-care (01) ==
LOC: PROCWHC3 07:26
PROVIDERS: ATTEND Internal Medicine Hematology & Oncology
DX: Z51.11 Encounter for antineoplastic chemotherapy (principal); C50.412 Malignant neoplasm of upper-outer quadrant of left female breast
CPT/HCPCS: 96402; J1950

== ENCOUNTER → 2021-01-17 | Outpatient (CLI) | payer MEDICARE, OTHER ==
--- NOTE | 2021-01-17 12:00 | BD ---
EXAMINATION TYPE: Axial Bone Density DATE OF EXAM: 01/17/2021 COMPARISON: 11/24/2018 CLINICAL HISTORY: Postmenopausal female Height: 64 IN Weight: 279 LBS FRAX RISK QUESTIONS: Secondary Osteoporosis: 3. Menopause before 45: YES AGE 34 RISK FACTORS HISTORY OF: Active: LIMITED Postmenopausal woman: AGE 34 MEDICATIONS: Additional Medications: CALCIUM, VIT D, FEMARA, LUPRON,CARBAMAZEPINE, LISINOPRIL, XARELTO Additional History: BREAST CANCER WITH CHEMO AND RADIATION EXAM MEASUREMENTS: Bone mineral densitometry was performed using the [employer] System. Bone mineral density as measured about the Lumbar spine is: ----- L1-L4(G/cm2): 1.271 T Score Values are as follows: ----- L2: 0.9 ----- L3: 0.5 ----- L4: 1.3 ----- L1-L4: 0.8 Bone mineral density has: Decreased -1.1% since study of: 11/24/2018 PT CANNOT TURN LEFT LEG IN. Bone mineral density about the R hip (g/cm2): 1.212 Bone mineral density about the L hip (g/cm2): 1.045 T Score values are as follows: -----R Neck: 1.2 -----L Neck: 0.1 -----R Total: 1.5 -----L Total: 1.3 Bone mineral density has: Decreased -2.1% since study of: 11/24/2018 IMPRESSION: Normal (Values between +1 and -1 indicate normal bone mass). Consider repeating this study in 5 year s or sooner if there is some new clinical indication. NOTE: T-SCORE=SD OF THE YOUNG ADULT MEAN.
== END | disposition home or self-care (01) ==
LOC: RADBDWWP 08:06
PROVIDERS: ATTEND Internal Medicine Hematology & Oncology
DX: Z78.0 Asymptomatic menopausal state (principal)
CPT/HCPCS: 77080

== ENCOUNTER → 2021-02-28 | Outpatient (CLI) | payer MEDICARE, OTHER ==
[2021-02-28 10:41] VITALS: BP 115/88; PULSE 97; RESP 16; TEMP 98
== END ==
LOC: PROCWHC3 09:55
PROVIDERS: ATTEND Internal Medicine Hematology & Oncology
DX: C50.412 Malignant neoplasm of upper-outer quadrant of left female breast (principal)
CPT/HCPCS: 96402; J1950

== ENCOUNTER → 2021-05-26 | Outpatient (CLI) | payer MEDICARE, OTHER ==
[2021-05-26 13:04] LABS: Basophils # (A) 0.03 X 10*3/uL (0.00-0.10); Basophils % (A) 0.6 %; Eosinophils % (A) 4.2 %; HCT 41.1 % (37.2-46.3); HGB 13.4 g/dL (12.0-15.0); Lymphocytes # (A) 1.44 X 10*3/uL (0.90-5.00); Lymphocytes % (A) 30.4 %; MCH 28.3 pg (27.0-32.0); MCHC 32.6 g/dL (32.0-37.0); MCV 86.9 fL (80.0-97.0); Mean Platelet Volume 9.2 fL (9.5-12.2); Monocytes # (A) 0.32 X 10*3/uL (0.20-1.00); Monocytes % (A) 6.8 %; Neutrophils # (A) 2.71 X 10*3/uL (1.80-7.70); Neutrophils % (A) 57.4 %; Platelet Count 257 X 10*3/uL (140-440); RBC 4.73 X 10*6/uL (4.10-5.20); RDW 12.6 % (11.5-14.5); WBC 4.73 X 10*3/uL (4.50-10.00)
== END | disposition home or self-care (01) ==
LOC: LABWHC1 08:44
PROVIDERS: ATTEND Family Medicine
DX: G40.909 Epilepsy, unspecified, not intractable, without status epilepticus (principal)
CPT/HCPCS: 36415; 83036; 85025

== ENCOUNTER → 2021-06-06 | Outpatient (CLI) | payer MEDICARE, OTHER ==
[2021-06-06 10:08] VITALS: BP 123/83; PULSE 109; RESP 16; TEMP 98.3
== END ==
LOC: PROCWHC3 09:57
PROVIDERS: ATTEND Internal Medicine Hematology & Oncology
DX: C50.412 Malignant neoplasm of upper-outer quadrant of left female breast (principal)
CPT/HCPCS: 96402; J1950

== ENCOUNTER → 2021-12-07 | Outpatient (CLI) | payer MEDICARE, OTHER ==
[2021-12-07 10:42] LABS: Basophils # (A) 0.03 X 10*3/uL (0.00-0.10); Basophils % (A) 0.6 %; Eosinophils # (A) 0.15 X 10*3/uL (0.04-0.35); HCT 42.6 % (37.2-46.3); HGB 13.2 g/dL (12.0-15.0); Immature Grans, Automated 0.4 %; Lymphocytes # (A) 1.42 X 10*3/uL (0.90-5.00); Lymphocytes % (A) 28.1 %; MCH 27.2 pg (27.0-32.0); MCV 87.8 fL (80.0-97.0); Mean Platelet Volume 8.9 fL (9.5-12.2); Monocytes # (A) 0.34 X 10*3/uL (0.20-1.00); Monocytes % (A) 6.7 %; NRBC Per 100 WBC 0 /100 WBCS (0.0-0.0); Neutrophils # (A) 3.09 X 10*3/uL (1.80-7.70); Neutrophils % (A) 61.2 %; Platelet Count 267 X 10*3/uL (140-440); RBC 4.85 X 10*6/uL (4.10-5.20); RDW 12.3 % (11.5-14.5); WBC 5.05 X 10*3/uL (4.50-10.00)
[2021-12-07 11:04] LABS: ALT 24 U/L (8-44); AST 15 U/L (13-35); African American GFR (CKD) 123.9 (60.0-200.0); Albumin 4.6 g/dL (3.8-4.9); Albumin/Globulin Ratio 1.48 (1.60-3.17); Alkaline Phosphatase 165 U/L (41-126); BUN/Creat Ratio 23.43 Ratio (12.00-20.00); Blood Urea Nitrogen 16.4 mg/dL (9.0-27.0); Calcium 9.8 mg/dL (8.7-10.3); Carbon Dioxide 24.7 mmol/L (20.0-27.5); Chloride 104 mmol/L (96-109); Chol/HDL Ratio 3.99 Ratio; Globulin 3.1 g/dL (1.6-3.3); Glucose 96 mg/dL (70-110); LDL Cholesterol,Calculated 134.9 mg/dL (0.0-131.0); Non-African American GFR(CKD) 106.9 (60.0-200.0); Potassium 4.5 mmol/L (3.5-5.5); Sodium 141 mmol/L (135-145); Total Protein 7.7 g/dL (6.2-8.2)
--- NOTE | 2021-12-07 11:48 | XR ---
Right knee HISTORY: M 65.18 3 views the right knee, correlation to ultrasound dated 09/01/2019 there is marginal spurring in the medial and patellofemoral compartments. Bone mineralization, joint spaces and alignment are maintained with exception of joint space loss of the patellofemoral joint. N o evident joint effusion. Soft tissue swelling is noted anteriorly. IMPRESSION: Osteoarthritis. Soft tissue swelling.
== END | disposition home or self-care (01) ==
LOC: LABWHC1 07:17
PROVIDERS: ATTEND Family Medicine
DX: Z00.00 Encounter for general adult medical examination without abnormal findings (principal); I10 Essential (primary) hypertension; D23.9 Other benign neoplasm of skin, unspecified; Z85.820 Personal history of malignant melanoma of skin; M66.18 Rupture of synovium, other site
CPT/HCPCS: 36415; 80053; 80061; 84443; 85025

== ENCOUNTER → 2021-12-07 | Outpatient (CLI) | payer MEDICARE, OTHER ==
[2021-12-07 08:11] VITALS: BP 125/84; PULSE 89; RESP 16; TEMP 98.5
== END ==
LOC: PROCWHC3 06:50
PROVIDERS: ATTEND Internal Medicine Hematology & Oncology
DX: C50.412 Malignant neoplasm of upper-outer quadrant of left female breast (principal)
CPT/HCPCS: 96402

== ENCOUNTER → 2022-01-11 | Outpatient (CLI) | payer MEDICARE, OTHER ==
--- NOTE | 2022-01-11 09:47 | US ---
EXAMINATION TYPE: US abdomen limited DATE OF EXAM: 01/11/2022 COMPARISON: NONE CLINICAL HISTORY: R74.8 ELEVATED ALK PHOSPHATASE LEVEL. Elevated Alk Phos EXAM MEASUREMENTS: Liver Length: 15.9 cm Gallbladder Wall: 0.22 cm CBD: 0.7 cm. Normal less than 0.5 cm at this age. Right Kidney: 12.1 x 5.2 x 4.9 cm Pancreas: Obscured by bowel gas Liver: wnl Gallbladder: A single stone seen measuring 1.8 x 1.5 x 0.7 cm was seen. Evidence for sonographic Worthy's sign: No CBD: wnl Right Kidney: wnl IMPRESSION: 1. Cholelithiasis. Common bile duct is dilated for the patient's age.
== END | disposition home or self-care (01) ==
LOC: RADUSWWP 07:39
PROVIDERS: ATTEND Family Medicine
DX: K80.20 Calculus of gallbladder without cholecystitis without obstruction (principal); K83.8 Other specified diseases of biliary tract
CPT/HCPCS: 76705

== ENCOUNTER → 2022-03-08 | Outpatient (CLI) | payer MEDICARE, OTHER ==
[2022-03-08 08:05] VITALS: BP 141/85; PULSE 108; RESP 16; TEMP 98.2
== END ==
LOC: PROCWHC3 07:51
PROVIDERS: ATTEND Internal Medicine Hematology & Oncology
DX: C50.412 Malignant neoplasm of upper-outer quadrant of left female breast (principal)
CPT/HCPCS: 96402; J1950

== ENCOUNTER → 2022-06-10 | Outpatient (CLI) | payer MEDICARE, OTHER ==
[2022-06-10 08:30] VITALS: BP 126/86; PULSE 110; RESP 16; TEMP 98
== END ==
LOC: PROCWHC3 08:24
PROVIDERS: ATTEND Internal Medicine Hematology & Oncology
DX: C50.412 Malignant neoplasm of upper-outer quadrant of left female breast (principal)
CPT/HCPCS: 96402; J1950

== ENCOUNTER → 2022-12-04 | Outpatient (CLI) | payer MEDICARE, OTHER ==
[2022-12-04 08:35] VITALS: BP 138/85; PULSE 109; RESP 16; TEMP 97.9
== END ==
LOC: PROCWHC3 08:25
PROVIDERS: ATTEND Internal Medicine Hematology & Oncology
DX: C50.412 Malignant neoplasm of upper-outer quadrant of left female breast (principal)
CPT/HCPCS: 96402; J1950

== ENCOUNTER → 2023-01-21 | Outpatient (CLI) | payer MEDICARE, OTHER ==
--- NOTE | 2023-01-21 10:47 | BD ---
EXAMINATION TYPE: Axial Bone Density DATE OF EXAM: 01/21/2023 CLINICAL HISTORY: 42 years old Female. ICD-10 CODE: C50.412 BREAST CA Height: 64 Weight: 273 FRAX RISK QUESTIONS: Secondary Osteoporosis: yes 3. Menopause before 45: yes, 34 yrs RISK FACTORS HISTORY OF: Postmenopausal woman: yes, at 34 yrs old Lost more than 2 inches in height since high school: yes Frequent falls: unsteady Poor Health: challenged PATIENTS MOTHER WITH HER GIVING HEALTH HISTORY, PT UNABLE TO GIVE ANSWERS Hyperparathyroidism: no Adrenal Insufficiency: no MEDICATIONS: Additional Medications: hx of chemo, hx of radiation, bp meds, blood thinners, hormone blockers, Fema ra, Lupron, calcium, magnesium, vit d3, statin for cholesterol, Lipitrol, Additional History: hx of breast cancer, with chemo and radiation, lt breast , hypertension, choleste rol, hx of clots, EXAM MEASUREMENTS: Bone mineral densitometry was performed using the [employer] System. Bone mineral density as measured about the Lumbar spine is: ----- L1-L4(G/cm2): 1.267 T Score Values are as follows: ----- L1: -0.2 ----- L2: 1.1 ----- L3: 1.1 ----- L4: 0.7 ----- L1-L4: 0.7 Z Score Values are as follows: ----- L1: -1.4 ----- L2: -0.1 ----- L3: -0.1 ----- L4: -0.5 ----- L1-L4: -0.4 Bone mineral density has: Decreased -0.3% since study of: 01.17.2021 Bone mineral density about the R hip (g/cm2): 1.194 Bone mineral density about the L hip (g/cm2): 1.202 T Score values are as follows: -----R Neck: 1.2 -----L Neck: 0.4 -----R Total: 1.5 -----L Total: 1.5 Z Score values are as follows: -----R Neck: 0.9 -----L Neck: 0.2 -----R Total: 0.9 -----L Total: 1.0 Bone mineral density has: Increased 0.8% since study of: 01.17.2021 FRAX%s: The graph provided illustrates a 1.8% chance for a major osteoporotic fx and a 0.0% chance fo r the hips probability for fx in 10 years time. IMPRESSION: Normal (Values between +1 and -1 indicate normal bone mass). Consider repeating this study in 5 year s or sooner if there is some new clinical indication. NOTE: T-SCORE=SD OF THE YOUNG ADULT MEAN.
== END | disposition home or self-care (01) ==
LOC: RADBDWWP 10:00
PROVIDERS: ATTEND Internal Medicine Hematology & Oncology
DX: C50.412 Malignant neoplasm of upper-outer quadrant of left female breast (principal); I10 Essential (primary) hypertension; Z78.0 Asymptomatic menopausal state; Z85.3 Personal history of malignant neoplasm of breast
CPT/HCPCS: 77080

== ENCOUNTER → 2023-03-06 | Outpatient (CLI) | payer MEDICARE, OTHER ==
[2023-03-06 08:49] VITALS: BP 140/80; PULSE 100; RESP 16; TEMP 98.1
== END ==
LOC: PROCWHC3 08:42
PROVIDERS: ATTEND Internal Medicine Hematology & Oncology
DX: C50.412 Malignant neoplasm of upper-outer quadrant of left female breast (principal); Z79.818 Long term (current) use of other agents affecting estrogen receptors and estrogen levels
CPT/HCPCS: 96402; J1950

== ENCOUNTER → 2023-06-06 | Outpatient (CLI) | payer MEDICARE, OTHER ==
[2023-06-06 08:44] VITALS: BP 138/86; PULSE 105; RESP 15; TEMP 98.3
== END ==
LOC: PROCWHC3 08:14
PROVIDERS: ATTEND Internal Medicine Hematology & Oncology
DX: C50.412 Malignant neoplasm of upper-outer quadrant of left female breast (principal)
CPT/HCPCS: 96402; J1950

== ENCOUNTER → 2023-12-02 | Outpatient (CLI) | payer MEDICARE, OTHER ==
[2023-12-02] MEDS: LEUPROLIDE ACET 11.25MG SYRGKIT IM NR (08:34)
[2023-12-02 08:56] VITALS: BP 127/80; PULSE 78; RESP 16; TEMP 98
== END ==
LOC: PROCWHC3 08:22
PROVIDERS: ATTEND Internal Medicine Hematology & Oncology
DX: C50.412 Malignant neoplasm of upper-outer quadrant of left female breast (principal)
CPT/HCPCS: 96402; J1950

== ENCOUNTER → 2024-03-02 | Outpatient (CLI) | payer MEDICARE, OTHER ==
[2024-03-02 08:42] VITALS: BP 155/93; PULSE 108; RESP 16; TEMP 98
[2024-03-02] MEDS: LEUPROLIDE ACET 11.25MG SYRGKIT IM NR (08:42)
== END ==
LOC: PROCWHC3 08:02
PROVIDERS: ATTEND Internal Medicine Hematology & Oncology
DX: C50.412 Malignant neoplasm of upper-outer quadrant of left female breast (principal)
CPT/HCPCS: 96402; J1950; 96372

== ENCOUNTER → 2025-01-24 | Outpatient (CLI) | payer MEDICARE, OTHER ==
--- NOTE | 2025-01-24 12:36 | BD ---
EXAMINATION TYPE: Axial Bone Density DATE OF EXAM: 01/24/2025 CLINICAL HISTORY: 44 years old Female. ICD-10 CODE: M81.0 Osteopenia , Additional History: Height: 64 in Weight: 273 lbs FRAX RISK QUESTIONS: History of Fracture in Adulthood: lt humerus age 44 Secondary Osteoporosis: 3. Menopause before 45: age 34 EXAM MEASUREMENTS: Bone mineral densitometry was performed using the [employer] System. Bone mineral density as measured about the Lumbar spine is: ----- L1-L4(G/cm2): 1.209 T Score Values are as follows: ----- L1: 0.2 ----- L2: 0.6 ----- L3: 0.1 ----- L4: -0.1 ----- L1-L4: 0.2 Z Score Values are as follows: ----- L1: -0.9 ----- L2: -0.5 ----- L3: -1.0 ----- L4: -1.2 ----- L1-L4: -0.9 Bone mineral density has: Decreased -4.6% since study of: 01/21/2023 Bone mineral density about the R hip (g/cm2): 1.288 Bone mineral density about the L hip (g/cm2): 1.264 T Score values are as follows: -----R Neck: 2.5 -----L Neck: 1.8 -----R Total: 2.2 -----L Total: 2.0 Z Score values are as follows: -----R Neck: 2.3 -----L Neck: 1.6 -----R Total: 1.7 -----L Total: 1.5 Bone mineral density has: Increased 6.5% since study of: 01/21/2023 FRAX%s: The graph provided illustrates a 3.6% chance for a major osteoporotic fx and a 0.0% chance fo r the hips probability for fx in 10 years time. IMPRESSION: Normal (Values between +1 and -1 indicate normal bone mass). Consider repeating this study in 5 year s or sooner if there is some new clinical indication. NOTE: T-SCORE=SD OF THE YOUNG ADULT MEAN. [facility], , 01/24/2025 12:34 PM
== END | disposition home or self-care (01) ==
LOC: RADBDWWP 11:18
PROVIDERS: ATTEND Internal Medicine Hematology & Oncology
DX: M81.0 Age-related osteoporosis without current pathological fracture (principal); M85.88 Other specified disorders of bone density and structure, other site; R56.9 Unspecified convulsions; C50.412 Malignant neoplasm of upper-outer quadrant of left female breast; Z71.3 Dietary counseling and surveillance; Z78.0 Asymptomatic menopausal state
CPT/HCPCS: 77080